=== PATIENT | female | born 1970 | race Two or more races ===

== ENCOUNTER 2022-04-08 16:21 | Emergency (ER) | payer OTHER ==
[~2022-04-08] VITALS: Ht 152.4 cm; Wt 56.5 kg
[2022-04-08 19:10] VITALS: BP 137/90
[2022-04-08] MEDS ORDERED: CYCL-837 PO (19:41)
[2022-04-08] MEDS ORDERED: IBUP600T27 PO (19:41)
== END 2022-04-08 20:00 | disposition home or self-care (01) ==
LOC: ER 16:21
DX: S00.93XA Contusion of unspecified part of head, initial encounter (principal); V43.52XA Car driver injured in collision with other type car in traffic accident, initial encounter; Y93.89 Activity, other specified; Y92.410 Unspecified street and highway as the place of occurrence of the external cause; Y99.8 Other external cause status